=== PATIENT | male | born 1955 | race Caucasian/White ===

== ENCOUNTER 2016-12-14 18:50 | Emergency (ER) | payer OTHER ==
[~2016-12-14] VITALS: Ht 172.7 cm; Wt 72.7 kg
[2016-12-14] MEDS ORDERED: PERTUSS(ACELL),DIPH,TET VAC/PF 0.5 ML VIAL IM ONE (20:00)
[2016-12-14] MEDS ORDERED: BACITRACIN 0.9 GM PACKET OINTMENT TP ONE (20:00)
[2016-12-14] MEDS ORDERED: BUPIVACAINE HCL/PF 0.5% 10 ML VIAL SQ ONE (20:00)
[2016-12-14] MEDS ORDERED: IBUPROFEN 600 MG TABLET PO ONE (21:00)
[2016-12-14] MEDS ORDERED: IBUPROFEN 800 MG TABLET PO ONE (21:15)
[2016-12-14 23:30] VITALS: BP 140/92
== END 2016-12-15 00:13 | disposition left against medical advice (07) ==
LOC: EMS 18:51
DX: S02.80XB Fracture of other specified skull and facial bones, unspecified side, initial encounter for open fracture (principal); S01.01XA Laceration without foreign body of scalp, initial encounter; S81.011A Laceration without foreign body, right knee, initial encounter; S50.312A Abrasion of left elbow, initial encounter; F15.90 Other stimulant use, unspecified, uncomplicated; F17.210 Nicotine dependence, cigarettes, uncomplicated; Z02.89 Encounter for other administrative examinations; W19.XXXA Unspecified fall, initial encounter; Y93.89 Activity, other specified; Y92.89 Other specified places as the place of occurrence of the external cause; Y99.8 Other external cause status
CPT/HCPCS: 12002; 70450; 71010; 72070; 72100; 72125; 73080; 73562; 90471; 90715; 96372; 99284; 99406; J3490

== ENCOUNTER 2025-03-12 15:14 | Inpatient (IN) | payer OTHER ==
[~2025-03-12] VITALS: Ht 172.7 cm; Wt 73.9 kg
[2025-03-12 15:52] LABS: PLATELET COUNT (AUTO) 338 K/uL (150-450); RED BLOOD CELL COUNT(AUTO) 3.80 MIL/uL (4.50-5.90); RED CELL DISTRIBUTION WIDTH 19.0 % (11.5-14.5); WHITE BLOOD COUNT (AUTO) 9.4 K/uL (4.5-11.0)
[2025-03-12 16:01] LABS: CALCIUM, TOTAL 8.2 mg/dL (8.8-10.5); CREATININE 0.80 mg/dL (0.60-1.30); GLOMERULAR FILTR. RATE CALC > 60 mL/min (>60); GLUCOSE,RANDOM 120 mg/dL (70-110); SODIUM SERUM 140 mmol/L (136-145); UREA NITROGEN, BLOOD 10 mg/dL (7-18)
[2025-03-12 16:08] LABS: TROPONIN I-HIGH SENSITIVITY 45 ng/L (<76)
[2025-03-12] MEDS: FUROSEMIDE 40 MG/4 ML VIAL IVP ONE (21:24)
[2025-03-12] MEDS: DIPHENOXYLATE/ATROP 2.5-0.025 MG TABLET PO ONE (21:25)
[2025-03-12] MEDS: ASPIRIN 325 MG TABLET PO ONE (21:25)
[2025-03-12] MEDS: POTASSIUM CHLORIDE 20 MEQ ER TABLET PO ONE (21:25)
[2025-03-12 23:16] LABS: COVID AG,FIA SOURCE NASAL SWAB
[2025-03-12 23:40] LABS: SARS-COV2 (COVID) ANTIGEN,FIA Negative (Negative)
[2025-03-12 23:41] LABS: INFLUENZA TYPE A NEGATIVE FOR TYPE A (NEGATIVE); INFLUENZA TYPE B NEGATIVE FOR TYPE B (NEGATIVE)
[2025-03-13] VITALS (8 sets, daily range): BP systolic 102–144; BP diastolic 72–94; PULSE 88–113; RESP 16–24; TEMP 97.3–97.9; O2SAT 94–100
[2025-03-13] MEDS ORDERED: MAGNESIUM SULFATE 4 GM/WATER 100 ML IV PRN (00:15)
[2025-03-13] MEDS ORDERED: POTASSIUM CHLORIDE 20 MEQ ER TABLET PO PRN (00:15)
[2025-03-13] MEDS ORDERED: MAGNESIUM SULFATE 2 GM/WATER 50 ML IV PRN (00:15)
[2025-03-13] MEDS ORDERED: POTASSIUM CHL 10 MEQ/WATER 50 ML IV PRN (00:15)
[2025-03-13] MEDS: CefTRIAXone 1 GM/DEXTROSE 50 ML IV SCH (01:09)
[2025-03-13] MEDS: HEPARIN SODIUM,PORCINE 5,000 UNITS/ML VIAL SQ SCH (01:09)
[2025-03-13] MEDS: FUROSEMIDE 40 MG/4 ML VIAL IVP ONE (01:09)
[2025-03-13] MEDS: SODIUM CHLORIDE 0.9% 250 ML IV ONE (01:09)
[2025-03-13 01:24] LABS: LACTIC ACID 1.7 mmol/L (0.4-2.0)
[2025-03-13] MEDS: *CLINICAL-BACTRIM/SEPTRA IVPB DOSING CLINICAL ONE (02:34)
[2025-03-13 03:23] LABS: TROPONIN I-HIGH SENSITIVITY 35 ng/L (<76)
[2025-03-13 06:47] LABS: PLATELET COUNT (AUTO) 319 K/uL (150-450); RED BLOOD CELL COUNT(AUTO) 3.59 MIL/uL (4.50-5.90); RED CELL DISTRIBUTION WIDTH 18.0 % (11.5-14.5); WHITE BLOOD COUNT (AUTO) 7.8 K/uL (4.5-11.0)
[2025-03-13] MEDS: AZITHROMYCIN 500 MG/NS 250 ML IV SCH (07:06)
[2025-03-13] MEDS: SULFAMETHOX/TRIMETH 25 ML in DEXTROSE 5%-WATER 250 ML IV SCH ×2 (07:08→19:56)
[2025-03-13 07:19] LABS: CALCIUM, TOTAL 8.2 mg/dL (8.8-10.5); CREATININE 0.75 mg/dL (0.60-1.30); GLOMERULAR FILTR. RATE CALC > 60 mL/min (>60); GLUCOSE,RANDOM 166 mg/dL (70-110); SODIUM SERUM 140 mmol/L (136-145); UREA NITROGEN, BLOOD 13 mg/dL (7-18)
[2025-03-13 10:31] LABS: SPECIMENTYPE,BODY FLUID THORAV
[2025-03-13] MEDS: FUROSEMIDE 20 MG/2 ML VIAL IVP SCH (10:54)
[2025-03-13] MEDS: ASPIRIN 81 MG CHEWABLE TABLET PO SCH (10:54)
[2025-03-13] MEDS: ATORVASTATIN CALCIUM 40 MG TABLET PO SCH (10:54)
[2025-03-13] MEDS: DOCUSATE SODIUM 100 MG CAPSULE PO SCH (10:54)
[2025-03-13] MEDS: MAGNESIUM OXIDE 400 MG TABLET PO PRN (11:16)
[2025-03-13 12:06] LABS: APPEARANCE,SPUN,BODY FLUID CLEAR (CLEAR); APPEARANCE,UNSPUN,BODY FLUID SLIGHTLY CLOUDY (CLEAR); BODY FLUID RBC 900.0 /cu. mm.; COLOR,BODY FLUID YELLOW (LT YELLOW); PH, BODY FLUID 8.0; TOTAL VOLUME,BODY FLUID 1025 mL; WBC, BODY FLUID 235 /cu. mm.
[2025-03-13 12:17] LABS: BASOPHILS,BODY FLUID 0 %; EOSINOPHILS,BF (ANAL) 0 %; LYMPHOCYTES,BODY FLUID 60 %; MONOCYTES,BODY FLUID 11 %; NEUTROPHILS,BODY FLUID 27 %
[2025-03-13 12:18] LABS: OTHER CELLS,BODY FLUID MESOTHELIALS
[2025-03-13] MEDS: PIPERACILLIN/TAZO 3.375 GM/D5W 50 ML IV SCH (14:02)
[2025-03-13] MEDS ORDERED: SODIUM CHLORIDE 0.9% 500 ML IV ONE ×2 (14:04→20:16)
[2025-03-13] MEDS: ACETAMINOPHEN 325 MG TABLET PO PRN (16:56)
[2025-03-13] MEDS: LOSARTAN POTASSIUM 25 MG TABLET PO SCH (19:56)
[2025-03-13] MEDS: POTASSIUM CHLORIDE 20 MEQ ER TABLET PO ONE (19:57)
[2025-03-13] MEDS: METOPROLOL SUCCINATE 25 MG ER TABLET PO SCH (19:57)
[2025-03-13] MEDS: FUROSEMIDE 40 MG/4 ML VIAL IVP SCH (19:57)
[2025-03-13] MEDS: SPIRONOLACTONE 25 MG TABLET PO SCH (19:57)
[2025-03-13] MEDS: MAGNESIUM SULFATE 4 GM/WATER 100 ML IV ONE (19:58)
[2025-03-13] MEDS: ONDANSETRON HCL 4 MG/2 ML VIAL IVP PRN (23:30)
[2025-03-14] VITALS (20 sets, daily range): BP systolic 84–132; BP diastolic 35–77; PULSE 57–125; RESP 18–37; TEMP 87.1–97.5; O2SAT 0–100
[2025-03-14] MEDS: ZOLPIDEM TARTRATE 5 MG TABLET PO PRN (00:10)
[2025-03-14] MEDS ORDERED: NOREPINEPHRINE 8 MG/0.9 % NACL 250 ML IV ONE (05:01)
[2025-03-14] MEDS: NOREPINEPHRINE 8 MG/0.9 % NACL 250 ML IV PRN (05:10)
[2025-03-14 05:30] LABS: GLUCOMETER DEV NAME(LOC) 5N.1D; GLUCOSE,POINT OF CARE 89 MG/DL (70-110)
[2025-03-14 05:40] LABS: ABG BASE EXCESS -20.6 mmol/L (-2.0-3.0); ABG CARBOXYHEMOGLOBIN 0.5 % (0.5-1.5); ABG HCO3 9.7 mmol/L (21.0-28.0); ABG METHEMOGLOBIN 0.3 % (0.0-1.5); ABG OXYGEN CONTENT 16.6 mL/dL (15.0-23.0); ABG OXYGEN SATURATION 92.0 % (94.0-98.0); ABG OXYHEMOGLOBIN 91.3 % (94.0-98.0); ABG PCO2 43 mmHg (32.0-48.0); ABG PH 7.007 (7.350-7.450); ABG TOTAL HEMOGLOBIN 12.8 G/dL (13.5-17.5); ALLEN TEST, BLOOD GAS Positive; FRACTIONATED INSPIRED OXYGEN 100.0 % (21-100.0); O2 DEVICE,BLOOD GAS VENTILATOR (ROOM AIR); PEEP,BG 5 cm H2O; PO2, ARTERIAL BG 91.8 mmHg (83.0-108.0); SET RATE, BG 22.0 min.; SITE, BLOOD GAS LFT RADIAL; SOURCE, BLOOD GAS ARTERIAL; TEMPERATURE, FAHRENHEIT, BG 94.5 FAHREN (96.0-98.6); VT, ABG 420 ml
[2025-03-14] MEDS ORDERED: SODIUM BICARBONATE [ADULT] 8.4% 50 MEQ/50 ML SYRINGE IVP ONE (05:52)
[2025-03-14] MEDS: SODIUM BICARBONATE [ADULT] 8.4% 50 MEQ/50 ML SYRINGE IVP ONE (06:08)
[2025-03-14] MEDS ORDERED: PROPOFOL 1000 MG/ISO-OSM 100 ML ONE (06:11)
[2025-03-14] MEDS: SODIUM BICARBONATE 150 MEQ in DEXTROSE 5%-WATER 1,000 ML IV SCH (06:25)
[2025-03-14] MEDS: PHENYLEPHRINE 200 MG/D5%-WATER 250 ML IV PRN (06:27)
[2025-03-14] MEDS: PROPOFOL 1000 MG/ISO-OSM 100 ML IV PRN (06:36)
[2025-03-14 06:43] LABS: TROPONIN I-HIGH SENSITIVITY 415 ng/L (<76)
[2025-03-14 07:11] LABS: LACTIC ACID 6.1 mmol/L (0.4-2.0)
[2025-03-14 07:24] LABS: ASPARTATE AMINOTRANSFERASE 127.0 U/L (15-37); CALCIUM, TOTAL 8.5 mg/dL (8.8-10.5); CREATININE 1.53 mg/dL (0.60-1.30); GLOMERULAR FILTR. RATE CALC 45.0 mL/min (>60); GLUCOSE,RANDOM 116.0 mg/dL (70-110); SODIUM SERUM 142.0 mmol/L (136-145); TOTAL PROTEIN, SERUM 6.6 g/dL (6.4-8.2); UREA NITROGEN, BLOOD 27.0 mg/dL (7-18)
[2025-03-14 07:54] LABS: PLATELET COUNT (AUTO) 321 K/uL (150-450); RED BLOOD CELL COUNT(AUTO) 4.26 MIL/uL (4.50-5.90); RED CELL DISTRIBUTION WIDTH 19.9 % (11.5-14.5)
[2025-03-14 07:58] LABS: WHITE BLOOD COUNT (AUTO) 30.4 K/uL (4.5-11.0)
[2025-03-14] MEDS: VASOPRESSIN 40 UNITS in DEXTROSE 5%-WATER 98 ML IV PRN (08:17)
[2025-03-14] MEDS: DOPamine 400MG/D5W[STANDARD] 250 ML IV PRN (09:16)
[2025-03-14 09:19] LABS: BAND NEUTROPHILS % (MANUAL) 7 % (0-5); LYMPHOCYTES % (MANUAL) 18 % (22-44); METAMYELOCYTES % 1 % (0-0); MONOCYTES % (MANUAL) 1 % (2-9); SEGMENTED NEUTROPHILS % 73 % (40-70)
[2025-03-14 09:20] LABS: RBC MORPHOLOGY COMMENT ABNORMAL RBC MORPH
[2025-03-14] MEDS: ETHYL ALCOHOL 62% ANTISEPTIC NASAL SANITIZER 0.6 ML AMPUL NASAL SCH (09:20)
[2025-03-14] MEDS ORDERED: HEPARIN SODIUM PORCINE IVP ONE ×2 (11:00)
[2025-03-14] MEDS ORDERED: SODIUM CHLORIDE 0.9% 250 ML IV ONE (11:24)
[2025-03-14] MEDS: ROCURONIUM BROMIDE 10 MG/ML 5 ML VIAL IVP ONE (11:29)
[2025-03-14] MEDS: HEPARIN SODIUM,PORCINE 1,000 UNITS/ML VIAL IVP ONE ×2 (11:31)
[2025-03-14] MEDS: *CLINICAL-MEROPENEM DOSING CLINICAL ONE (11:51)
[2025-03-14] MEDS: LINEZOLID 600 MG/ISO-OSM 300 ML IV SCH (12:02)
[2025-03-14 14:07] LABS: GLUCOSE, BODY FLUID,REF 186.0 mg/dL; LDH,BODY FLUID,REF 68.0 IU/L; TOTAL PROTEIN,BODY FLUID,REF 1.2 g/dL; URIC ACID, BODY FLUID,REF 7.8 mg/dL
[2025-03-14 14:16] LABS: PH,URINE DRUG SCREEN 6.5 (5.0-8.0)
[2025-03-14 14:27] LABS: PLATELET COUNT (AUTO) 291 K/uL (150-450); RED BLOOD CELL COUNT(AUTO) 4.26 MIL/uL (4.50-5.90); RED CELL DISTRIBUTION WIDTH 19.2 % (11.5-14.5)
[2025-03-14 14:27] LABS: ALCOHOL, URINE DRUG SCREEN NEGATIVE (NEGATIVE); AMPHET/METH SCREEN,URINE NEGATIVE (NEGATIVE); BARBITURATE SCREEN, URINE NEGATIVE (NEGATIVE); CANNABINOID SCREEN,URINE NEGATIVE (NEGATIVE); COCAINE SCREEN,URINE NEGATIVE (NEGATIVE); METHADONE SCREEN, URINE NEGATIVE (NEGATIVE)
[2025-03-14 14:29] LABS: WHITE BLOOD COUNT (AUTO) 35.3 K/uL (4.5-11.0)
[2025-03-14 14:47] LABS: CALCIUM, TOTAL 7.7 mg/dL (8.8-10.5); CREATININE 1.84 mg/dL (0.60-1.30); GLOMERULAR FILTR. RATE CALC 37.0 mL/min (>60); GLUCOSE,RANDOM 233.0 mg/dL (70-110); SODIUM SERUM 137.0 mmol/L (136-145); TOTAL PROTEIN, SERUM 6.6 g/dL (6.4-8.2); UREA NITROGEN, BLOOD 31.0 mg/dL (7-18)
[2025-03-14 14:49] LABS: ASPARTATE AMINOTRANSFERASE 1255.0 U/L (15-37)
[2025-03-14 14:51] LABS: BAND NEUTROPHILS % (MANUAL) 7 % (0-5); LYMPHOCYTES % (MANUAL) 15 % (22-44); METAMYELOCYTES % 1 % (0-0); MONOCYTES % (MANUAL) 1 % (2-9); RBC MORPHOLOGY COMMENT ABNORMAL RBC MORPH; SEGMENTED NEUTROPHILS % 76 % (40-70)
[2025-03-14 15:04] LABS: ABG BASE EXCESS -22.2 mmol/L (-2.0-3.0); ABG CARBOXYHEMOGLOBIN 0.7 % (0.5-1.5); ABG HCO3 8.9 mmol/L (21.0-28.0); ABG METHEMOGLOBIN 0.3 % (0.0-1.5); ABG OXYGEN CONTENT 11.4 mL/dL (15.0-23.0); ABG OXYGEN SATURATION 94.5 % (94.0-98.0); ABG OXYHEMOGLOBIN 93.6 % (94.0-98.0); ABG TOTAL HEMOGLOBIN 8.5 G/dL (13.5-17.5); FRACTIONATED INSPIRED OXYGEN 100.0 % (21-100.0); PO2, ARTERIAL BG 78.9 mmHg (83.0-108.0); SOURCE, BLOOD GAS ARTERIAL; TEMPERATURE, FAHRENHEIT, BG 88.3 FAHREN (96.0-98.6)
[2025-03-14 15:05] LABS: ABG A-A DIFF O2 627.9 mmHg (10-20.0); ABG PCO2 19 mmHg (32.0-48.0); ABG PH 7.175 (7.350-7.450); O2 DEVICE,BLOOD GAS VENTILATOR (ROOM AIR); PATIENT RATE, BG 28.0 min.; PEEP,BG 5 cm H2O; SET RATE, BG 28.0 min.; SITE, BLOOD GAS ARTERIAL LINE; SPONTANEOUS VT, BG 376 ml; VT, ABG 420 ml
[2025-03-14 15:12] LABS: PHOSPHORUS 9.5 mg/dL (2.5-4.9)
[2025-03-14 15:55] LABS: TROPONIN I-HIGH SENSITIVITY 423 ng/L (<76)
[2025-03-14] MEDS: MEROPENEM 1 GM in SODIUM CHLORIDE 0.9% 50 ML IV SCH (16:06)
[2025-03-14] MEDS: FUROSEMIDE 40 MG/4 ML VIAL IVP ONE (16:07)
[2025-03-14 16:33] LABS: INFLUENZA A-RTPCR,COMBO NEGATIVE (NEGATIVE); INFLUENZA B-RTPCR,COMBO NEGATIVE (NEGATIVE); RESPIRATORY SYNCYTIAL VRS-PCR NEGATIVE (NEGATIVE)
[2025-03-14 16:39] LABS: SARS COVID19 RTPCR, COMBO POSITIVE (NEGATIVE)
[2025-03-14] MEDS: DEXAMETHASONE SOD PHOS 4 MG/ML VIAL IVP SCH (18:15)
[2025-03-14] MEDS: REMDESIVIR 200 MG in SODIUM CHLORIDE 0.9% 250 ML IV ONE (18:15)
[2025-03-14] MEDS ORDERED: POTASSIUM CHLORIDE 10 MEQ in NXSTAGE RFP-402 K0/CA3 5,000 ML IRRIG PRN (18:30)
[2025-03-14] MEDS ORDERED: SODIUM CHLORIDE 0.9% 2,000 ML ONE (18:39)
[2025-03-14] MEDS ORDERED: EPINEPHrine 10 MG in DEXTROSE 5%-WATER 240 ML IV PRN (20:00)
[2025-03-14 20:04] LABS: PLATELET COUNT (AUTO) 283 K/uL (150-450); RED BLOOD CELL COUNT(AUTO) 4.09 MIL/uL (4.50-5.90); RED CELL DISTRIBUTION WIDTH 19.1 % (11.5-14.5)
[2025-03-14 20:06] LABS: WHITE BLOOD COUNT (AUTO) 37.9 K/uL (4.5-11.0)
[2025-03-14 20:22] LABS: ABG BASE EXCESS -18.8 mmol/L (-2.0-3.0); ABG CARBOXYHEMOGLOBIN 0.6 % (0.5-1.5); ABG HCO3 11.0 mmol/L (21.0-28.0); ABG METHEMOGLOBIN 0.3 % (0.0-1.5); ABG OXYGEN CONTENT 14.1 mL/dL (15.0-23.0); ABG OXYGEN SATURATION 92.6 % (94.0-98.0); ABG OXYHEMOGLOBIN 91.8 % (94.0-98.0); ABG PCO2 31 mmHg (32.0-48.0); ABG TOTAL HEMOGLOBIN 10.8 G/dL (13.5-17.5); FRACTIONATED INSPIRED OXYGEN 100.0 % (21-100.0); PO2, ARTERIAL BG 69.2 mmHg (83.0-108.0); TEMPERATURE, FAHRENHEIT, BG 90.3 FAHREN (96.0-98.6)
[2025-03-14 20:23] LABS: CALCIUM, TOTAL 7.6 mg/dL (8.8-10.5); CREATININE 2.2 mg/dL (0.60-1.30); GLOMERULAR FILTR. RATE CALC 30.0 mL/min (>60); GLUCOSE,RANDOM 192.0 mg/dL (70-110); SODIUM SERUM 140.0 mmol/L (136-145); TOTAL PROTEIN, SERUM 5.6 g/dL (6.4-8.2); UREA NITROGEN, BLOOD 32.0 mg/dL (7-18)
[2025-03-14 20:24] LABS: ABG PH 7.144 (7.350-7.450)
[2025-03-14 20:25] LABS: ABG A-A DIFF O2 623.5 mmHg (10-20.0); O2 DEVICE,BLOOD GAS VENTILATOR (ROOM AIR); SITE, BLOOD GAS LFT RADIAL; SOURCE, BLOOD GAS ARTERIAL LINE
[2025-03-14 20:26] LABS: PATIENT RATE, BG 28.0 min.; PEEP,BG 8 cm H2O; SET RATE, BG 28.0 min.; SPONTANEOUS VT, BG 374 ml; VT, ABG 420 ml
[2025-03-14 20:32] LABS: BAND NEUTROPHILS % (MANUAL) 7 % (0-5); LYMPHOCYTES % (MANUAL) 4 % (22-44); MONOCYTES % (MANUAL) 2 % (2-9); SEGMENTED NEUTROPHILS % 87 % (40-70); WBC MORPHOLOGY TOXIC VACUOLATION
[2025-03-14 20:33] LABS: RBC MORPHOLOGY COMMENT ABNORMAL R
[2025-03-14 20:43] LABS: ASPARTATE AMINOTRANSFERASE 159.0 U/L (15-37)
[2025-03-14] MEDS: NOREPINEPHRINE BITARTRATE 16 MG in SODIUM CHLORIDE 0.9% 234 ML IV PRN (21:02)
[2025-03-14] MEDS: DOPamine 800MG/D5W[DOUBLE] 250 ML IV PRN (21:03)
[2025-03-14 21:52] LABS: PHOSPHORUS 10.2 mg/dL (2.5-4.9)
[2025-03-15] VITALS: BP 98/59; PULSE 78; RESP 28; TEMP 91.2
[2025-03-15 01:22] VITALS: PULSE 79; RESP 28; O2SAT 0
[2025-03-15] MEDS: HEPARIN SODIUM,PORCINE 1,000 UNITS/ML VIAL IVCATH PRN ×2 (02:12)
[2025-03-15 02:18] LABS: ABG BASE EXCESS -19.2 mmol/L (-2.0-3.0); ABG CARBOXYHEMOGLOBIN 0.4 % (0.5-1.5); ABG HCO3 10.8 mmol/L (21.0-28.0); ABG METHEMOGLOBIN 0.3 % (0.0-1.5); ABG OXYGEN CONTENT 14.4 mL/dL (15.0-23.0); ABG OXYGEN SATURATION 96.3 % (94.0-98.0); ABG OXYHEMOGLOBIN 95.6 % (94.0-98.0); ABG PCO2 28 mmHg (32.0-48.0); ABG TOTAL HEMOGLOBIN 10.6 G/dL (13.5-17.5); FRACTIONATED INSPIRED OXYGEN 100.0 % (21-100.0); PO2, ARTERIAL BG 89.5 mmHg (83.0-108.0); TEMPERATURE, FAHRENHEIT, BG 91.2 FAHREN (96.0-98.6)
[2025-03-15 02:19] LABS: ABG PH 7.159 (7.350-7.450); SITE, BLOOD GAS LFT RADIAL; SOURCE, BLOOD GAS ARTERIAL LINE
[2025-03-15 02:20] LABS: ABG A-A DIFF O2 605.2 mmHg (10-20.0); O2 DEVICE,BLOOD GAS VENTILATOR (ROOM AIR)
[2025-03-15 02:21] LABS: PATIENT RATE, BG 28.0 min.; PEEP,BG 8 cm H2O; SET RATE, BG 28.0 min.; SPONTANEOUS VT, BG 394 ml; VT, ABG 420 ml
[2025-03-15 02:49] LABS: PLATELET COUNT (AUTO) 144 K/uL (150-450); RED BLOOD CELL COUNT(AUTO) 4.01 MIL/uL (4.50-5.90); RED CELL DISTRIBUTION WIDTH 18.7 % (11.5-14.5)
[2025-03-15 02:56] LABS: WHITE BLOOD COUNT (AUTO) 42.2 K/uL (4.5-11.0)
[2025-03-15 02:58] LABS: BAND NEUTROPHILS % (MANUAL) 10 % (0-5); LYMPHOCYTES % (MANUAL) 2 % (22-44); MONOCYTES % (MANUAL) 5 % (2-9); SEGMENTED NEUTROPHILS % 83 % (40-70)
[2025-03-15 03:10] LABS: CALCIUM, TOTAL 7.3 mg/dL (8.8-10.5); CREATININE 2.09 mg/dL (0.60-1.30); GLOMERULAR FILTR. RATE CALC 32.0 mL/min (>60); GLUCOSE,RANDOM 187.0 mg/dL (70-110); PHOSPHORUS 8.8 mg/dL (2.5-4.9); SODIUM SERUM 135.0 mmol/L (136-145); TOTAL PROTEIN, SERUM 5.6 g/dL (6.4-8.2); UREA NITROGEN, BLOOD 32.0 mg/dL (7-18)
[2025-03-15 05:11] LABS: GLUCOMETER DEV NAME(LOC) ICUN.6; GLUCOSE,POINT OF CARE 162 MG/DL (70-110)
[2025-03-15 15:36] LABS: ASPARTATE AMINOTRANSFERASE 11285.0 U/L (15-37)
[2025-03-15] MEDS ORDERED: REMDESIVIR 100 MG in SODIUM CHLORIDE 0.9% 250 ML IV SCH (18:00)
[2025-03-17 13:08] LABS: LEGIONELLA PNEUMO AG URINE Negative (Negative); S PNEUMO SOURCE Urine; STREP PNEUMONIAE AG URINE Positive (Negative)
== END 2025-03-15 07:20 | DRG 720 ==
LOC: EMS 15:14 → EDH 21:21 → 5S 03-13 01:30 → ICU 03-14 04:30
PROVIDERS: ADMIT Internal Medicine; ATTEND Internal Medicine
PROC: 0W993ZZ Drainage of Right Pleural Cavity, Percutaneous Approach (ICD-10-PCS; principal; 2025-03-13)
PROC: 5A09357 Assistance with Respiratory Ventilation, Less than 24 Consecutive Hours, Continuous Positive Airway Pressure (ICD-10-PCS; 2025-03-13)
PROC: 5A1935Z Respiratory Ventilation, Less than 24 Consecutive Hours (ICD-10-PCS; 2025-03-14)
PROC: 0BH17EZ Insertion of Endotracheal Airway into Trachea, Via Natural or Artificial Opening (ICD-10-PCS; 2025-03-14)
PROC: 5A1D90Z Performance of Urinary Filtration, Continuous, Greater than 18 hours Per Day (ICD-10-PCS; 2025-03-14)
PROC: 5A12012 Performance of Cardiac Output, Single, Manual (ICD-10-PCS; 2025-03-14)
PROC: 02HV33Z Insertion of Infusion Device into Superior Vena Cava, Percutaneous Approach (ICD-10-PCS; 2025-03-14)
PROC: B548ZZA Ultrasonography of Superior Vena Cava, Guidance (ICD-10-PCS; 2025-03-14)
PROC: 06HY33Z Insertion of Infusion Device into Lower Vein, Percutaneous Approach (ICD-10-PCS; 2025-03-14)
PROC: B54BZZA Ultrasonography of Right Lower Extremity Veins, Guidance (ICD-10-PCS; 2025-03-14)
PROC: XW043E5 Introduction of Remdesivir Anti-infective into Central Vein, Percutaneous Approach, New Technology Group 5 (ICD-10-PCS; 2025-03-14)
DX: A41.9 Sepsis, unspecified organism (principal); R65.21 Severe sepsis with septic shock; I50.23 Acute on chronic systolic (congestive) heart failure; J69.0 Pneumonitis due to inhalation of food and vomit; J12.82 Pneumonia due to coronavirus disease 2019; J96.01 Acute respiratory failure with hypoxia; J91.8 Pleural effusion in other conditions classified elsewhere; E87.3 Alkalosis; J44.0 Chronic obstructive pulmonary disease with (acute) lower respiratory infection; I13.0 Hypertensive heart and chronic kidney disease with heart failure and stage 1 through stage 4 chronic kidney disease, or unspecified chronic kidney disease; I46.9 Cardiac arrest, cause unspecified; U07.1 COVID-19; J44.1 Chronic obstructive pulmonary disease with (acute) exacerbation; D64.9 Anemia, unspecified; E78.5 Hyperlipidemia, unspecified; E87.5 Hyperkalemia; E87.6 Hypokalemia; F15.10 Other stimulant abuse, uncomplicated; F17.210 Nicotine dependence, cigarettes, uncomplicated; R74.02 Elevation of levels of lactic acid dehydrogenase [LDH]; N18.9 Chronic kidney disease, unspecified; E11.22 Type 2 diabetes mellitus with diabetic chronic kidney disease; Z79.899 Other long term (current) drug therapy; N17.9 Acute kidney failure, unspecified
CPT/HCPCS: 32555; 71045; 71250; 76942; 80048; 80053; 80307; 82040; 82570; 82805; 82945; 82962; 83605; 83615; 83735; 83880; 83986; 84100; 84132; 84145; 84157; 84478; 84484; 84560; 85025; 87040; 87070; 87075; 87081; 87205; 87340; 87389; 87449; 87637; 87804; 87899; 88108; 88305; 89051; 90947; 93005; 93306; 94002; 94660; 96374; 96375; 99285; G0378; J0169; J0456; J0696; J1100; J1265; J1642; J1644; J1938; J2020; J2185; J2370; J2405; J2543; J2704; J2919; J3475; J3480; J3490; J7030; J7040; J7050; J7060; 36415-L1; 36415-TC